=== PATIENT | female | born 1965 | race Caucasian/White ===

== ENCOUNTER 2020-09-01 18:10 | Emergency (ER) | payer OTHER ==
[2020-09-01 18:17] VITALS: BP 128/78; PULSE 67; TEMP 97.9; BMI 26.4
[2020-09-01] MEDS ORDERED: METHOCARBAMOL 500 MG TABLET PO ONE (18:51)
[2020-09-01] MEDS ORDERED: KETOROLAC TROMETHAMINE 30 MG/1 ML VIAL IM ONE (18:51)
[2020-09-01] MEDS ORDERED: LIDOCAINE 5% TOPICAL PATCH TP ONE (18:52)
[2020-09-01] MEDS ORDERED: METHOCARBAMOL 500 MG TABLET ONE (18:54)
[2020-09-01] MEDS ORDERED: LIDOCAINE 5% TOPICAL PATCH ONE (18:54)
[2020-09-01] MEDS ORDERED: KETOROLAC TROMETHAMINE 30 MG/1 ML VIAL ONE (18:54)
== END 2020-09-01 19:00 | disposition home or self-care (01) ==
LOC: JERFT 18:10
PROC: 3E0233Z Introduction of Anti-inflammatory into Muscle, Percutaneous Approach (ICD-10-PCS; principal; 2020-09-01)
DX: M62.830 Muscle spasm of back (principal)
CPT/HCPCS: 99284-25

== ENCOUNTER 2021-07-22 09:16 | Emergency (ER) | payer OTHER ==
[2021-07-22 09:32] VITALS: BP 119/75; PULSE 64; TEMP 97.6; BMI 25.4
[2021-07-22] MEDS ORDERED: FLUORESCEIN NA 1 EA STRIP OS ONE (10:19)
[2021-07-22] MEDS ORDERED: FLUORESCEIN NA 1 EA STRIP ONE (10:32)
== END 2021-07-22 11:08 | disposition home or self-care (01) ==
LOC: JERFT 09:16
DX: H10.32 Unspecified acute conjunctivitis, left eye (principal)
CPT/HCPCS: 99283-25